=== PATIENT | female | born 1965 | race American Indian/Alaskan Native ===

== ENCOUNTER 2021-11-19 23:55 | Emergency (ER) | payer SELFPAY ==
[2021-11-20] MEDS ORDERED: KETOROLAC 30 MG/1 ML INJ IM ONE (08:12)
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
[2021-11-20 08:33] VITALS: BP 140/83
== END 2021-11-20 09:06 | disposition home or self-care (01) ==
LOC: ED 23:55
DX: M54.9 Dorsalgia, unspecified (principal); Y08.89XA Assault by other specified means, initial encounter; Y93.89 Activity, other specified; Y92.89 Other specified places as the place of occurrence of the external cause; Y99.8 Other external cause status
CPT/HCPCS: 96372; 99283; J1885